=== PATIENT | male | born 1985 | race Caucasian/White ===

== ENCOUNTER 2016-12-08 06:17 | Emergency (ER) | payer OTHER ==
[~2016-12-08] VITALS: Ht 180.3 cm; Wt 92.3 kg
[~2016-12-08 06:17] MED LIST: CYAN100020 PO; METH10CO2 PO; MULTTAB58 PO; OMEG10007 PO
[2016-12-08 06:18] VITALS: TEMP 36.7; Ht 180.3 cm; Wt 92.3 kg
[2016-12-08] MEDS ORDERED: LORAZEPAM 1 MG TAB PO STA (06:48)
--- NOTE | 2016-12-08 06:50 | EMERGENCY ROOM VISIT NOTE ---
History Report prepared by Jaqui: Janusz Sandhu Under the Supervision of: Dr. Edson Srivastava D.O. First contact with patient: 06:39 Chief Complaint: SHORTNESS OF BREATH Stated Complaint: DIZZINESS,NAUSEA,SHORTNESS OF BREATH,SHAKES History of Present Illness The patient is a 31 year old male who presents to the Emergency Room with complaints of persistent dizziness and "shakes" that began at 0530 this morning , one hour prior to arrival. The patient states that he feels like he is having a panic attack, but that this episode is "stronger" than what he usually experiences. He does have a history of anxiety and panic attacks and notes that he has these episodes frequently. He is not on any medications for his anxiety and he does no have a primary care physician. Source of History: patient Onset: 1 hour [employer] Position: other (Global) Quality: other (Anxiety/Panick Attack) Timing: other (Persistent) Review of Systems See HPI for pertinent positives & negatives. A total of 10 systems reviewed and were otherwise negative. Past Medical & Surgical Medical Problems: (1) Anxiety (2) Anxiety (3) Anxiety (4) Anxiety (5) Chest pain (6) Methadone maintenance therapy patient (7) Mood disorder (8) Opioid dependence on agonist therapy (9) Pancreatitis (10) Panic attack (11) Panic attacks (12) Panic attacks (13) Paresthesias (14) Right-sided chest pain (15) Seizure disorder (16) Seizures Surgical Problems: (1) History of tonsillectomy (2) Hx of tonsillectomy Family History Cancer Diabetes mellitus Hypertension Social History Smoking Status: Current Every Day Smoker Alcohol Use: occasionally Drug Use: none Marital Status: in relationship Housing Status: lives with family Occupation Status: employed Current/Historical Medications Scheduled Methadone Hcl (Methadose), 96 MG PO DAILY Allergies Coded Allergies: Cyclobenzaprine (Verified Allergy, Severe, SHORTNESS OF BREATH, 12/08/16) Naproxen (Verified Allergy, Severe, "STARTED TO PEE BLOOD", 12/08/16) Physical Exam Vital Signs Date Time Temp Pulse Resp B/P (MAP) Pulse Ox O2 Delivery O2 Flow Rate FiO2 12/08/16 08:03 98 16 145/97 99 12/08/16 07:05 99 20 150/101 97 12/08/16 06:18 36.7 89 20 158/104 99 Room Air Physical Exam CONSTITUTIONAL/VITAL SIGNS: Reviewed / noted above. GENERAL: Non-toxic in appearance. Slightly anxious appearing. INTEGUMENTARY: Warm, dry, and [place]. HEAD: Normocephalic. EYES: without scleral icterus or trauma. ENT/OROPHARYNX: clear and moist. LYMPHADENOPATHY/NECK: Is supple without lymphadenopathy or meningismus. RESPIRATORY: Lungs clear and equal. CARDIOVASCULAR: Regular rate and rhythm. GI/ABDOMEN: Soft and nontender. No organomegaly or pulsatile mass. No rebound or guarding. Normal bowel sounds. EXTREMITIES: Warm and well perfused. BACK: No CVA tenderness. NEUROLOGICAL: Intact without focal deficits. PSYCHIATRIC: normal affect. MUSCULOSKELETAL: Normally developed with good muscle tone. Medical Decision & Procedures Medications Administered Medications (Trade) Dose Ordered Sig/Mo Route Start Time Stop Time Status Last Admin Dose Admin Lorazepam (Ativan Tab) 1 mg NOW STAT PO 12/08/16 06:48 12/08/16 06:51 DC 12/08/16 06:56 1 MG Diphenhydramine HCl (Benadryl Inj) 50 mg NOW STAT IM 12/08/16 07:31 12/08/16 07:32 DC 12/08/16 07:36 50 MG ED Course 0643: Previous medical records were reviewed. The patient was evaluated in room A3. A complete history and physical examination was performed. 0649: Ordered Ativan 1mg SL 0655: The patient is resting in bed at this time. He is in agreement with the treatment plan and is ready to be discharged home. 0725: Per nursing staff the patient does not feel ready to leave the Department at this time. He notes that he is still experiencing tingling in his arms and dizziness. 0731: Ordered Benadryl 50 mg IM. Medical Decision Differential diagnosis: Etiologies such as mood disorder, anxiety, infection, hypoglycemia, electrolyte abnormalities, cardiac sources, intracerebral event, toxicologic, neurologic, as well as others were entertained. Blood pressure Screening: Patient was found to have high blood pressure on screening and does require follow-up. This is a 31-year-old male who presents to the ED with a chief complaint of shakiness, anxiety and dizziness. The patient states that his symptoms started around 5:30 AM. The patient has a history of anxiety attacks. The patient is chronically on methadone. He denies having a PCP but on a previous note, was noted to have a PCP who is designated in [facility]. He states that he does not know where [facility] is. The patient is noted have previous anxiety and panic attacks since prior to 2014. He states that he feels dizzy, panicky and shaky. His initial blood pressure was 158/104. Repeat blood pressure was slightly better. He was told to follow-up with a PCP for this, to have this rechecked. The patient has an otherwise unremarkable exam. He was treated with Ativan sublingual and Benadryl IM. After a short time, he was feeling better and was discharged. Impression Primary Impression: Panic attacks Scribe Attestation The scribe's documentation has been prepared under my direction and personally reviewed by me in its entirety. I confirm that the note above accurately reflects all work, treatment, procedures, and medical decision making performed by me. Departure Information Dispostion Home / Self-Care Referrals No Doctor, Assigned (PCP) Patient Instructions My [facility], Panic Disorder and Panic Attack Additional Instructions Your blood pressure was a little high today. This should be rechecked by your PCP. This could be related to anxiety. Return to the emergency department for worsening or new symptoms or any concerns. You have been examined and treated today on an emergency basis only. This is not a substitute for, or an effort to provide, complete comprehensive medical care. It is impossible to recognize and treat all injuries or illnesses in a single emergency department visit. It is therefore important that you follow up closely with your doctor. Call as soon as possible for an appointment.
[2016-12-08] MEDS ORDERED: DiphenhydrAMINE HCL 50 MG/ML VIAL IM STA (07:31)
[2016-12-08 08:03] VITALS: BP 145/97; PULSE 98; O2SAT 99
== END 2016-12-08 08:25 | disposition home or self-care (01) ==
LOC: C.EDB 06:18 → C.EDA 08:25
DX: F41.0 Panic disorder [episodic paroxysmal anxiety] (principal); G40.909 Epilepsy, unspecified, not intractable, without status epilepticus; F41.9 Anxiety disorder, unspecified; K86.1 Other chronic pancreatitis; F17.200 Nicotine dependence, unspecified, uncomplicated; Z88.8 Allergy status to other drugs, medicaments and biological substances; Z80.9 Family history of malignant neoplasm, unspecified; Z83.3 Family history of diabetes mellitus; Z82.49 Family history of ischemic heart disease and other diseases of the circulatory system; Z98.890 Other specified postprocedural states

== ENCOUNTER 2017-04-16 07:13 | Emergency (ER) | payer OTHER ==
[~2017-04-16] VITALS: Ht 180.3 cm; Wt 96.2 kg
[~2017-04-16 07:13] MED LIST changes: -CYAN100020 PO; -MULTTAB58 PO; -OMEG10007 PO
[2017-04-16 07:16] VITALS: TEMP 36.9; Ht 180.3 cm; Wt 96.2 kg
[2017-04-16] MEDS ORDERED: ACETAMINOPHEN 500 MG TAB PO STA (07:33)
[2017-04-16] MEDS ORDERED: MULT-506 PO (07:44)
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
[2017-04-16 09:31] VITALS: BP 148/86; PULSE 89; O2SAT 97
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
== END 2017-04-16 09:32 | disposition home or self-care (01) ==
LOC: C.EDB 07:13
DX: S06.0X0A Concussion without loss of consciousness, initial encounter (principal); S00.83XA Contusion of other part of head, initial encounter; R51 Headache; R68.84 Jaw pain; Y04.8XXA Assault by other bodily force, initial encounter; Y92.008 Other place in unspecified non-institutional (private) residence as the place of occurrence of the external cause; M25.78 Osteophyte, vertebrae; J01.00 Acute maxillary sinusitis, unspecified; F41.0 Panic disorder [episodic paroxysmal anxiety]; G40.909 Epilepsy, unspecified, not intractable, without status epilepticus; F41.9 Anxiety disorder, unspecified; F17.200 Nicotine dependence, unspecified, uncomplicated

== ENCOUNTER 2017-11-17 07:34 | Emergency (ER) | payer OTHER ==
[~2017-11-17] VITALS: Ht 180.3 cm; Wt 100.0 kg
[~2017-11-17 07:34] MED LIST changes: +MULT-506 PO
[2017-11-17 07:36] VITALS: TEMP 37.1; Ht 180.3 cm; Wt 100.0 kg
[2017-11-17 07:55] VITALS: O2SAT 97
--- NOTE | 2017-11-17 08:09 | EMERGENCY ROOM VISIT NOTE ---
History First contact with patient: 07:42 Chief Complaint: CARDIAC ASSESSMENT Stated Complaint: PALPITATIONS Nursing Triage Summary: PT HERE VIA ALS FROM HOME WITH CHEST PALPITATIONS. PT STATES HE COUGHED AND HE FELT THAT HIS HEART WAS RACING. PT DENIES ANY CHEST PAINS OR SOB. UPON ARRIVAL PT IS IN SINUS RHYTHM History of Present Illness The patient is a 32 year old male who presents to the Emergency Room via ALS with complaints of one episode lasting approximately 30 minutes of palpitations when he coughed. Patient states he was sitting at home when he began experiencing palpitations and his "heart racing". Patient states there are no associated chest pain, dyspnea, abdominal pain, recent illness, nausea, vomiting , or other concerning symptoms. Patient states he did experience some mild dizziness associated with the episode. He does have a history of similar symptoms in the past which were diagnosed as anxiety. He denies any drug use, and states he is a current smoker. 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 He is feeling better, however, anxious, upon arrival to the ED. He denies any recent travel or history of blood clots. He denies any use of hormone replacement. Review of Systems A complete 10 point review of systems was reviewed with the patient with pertinent positives and negatives as per history of present illness. All else were negative. Past Medical/Surgical History Medical Problems: (1) Anxiety (2) Anxiety (3) Anxiety (4) Anxiety (5) Chest pain (6) Methadone maintenance therapy patient (7) Mood disorder (8) Opioid dependence on agonist therapy (9) Pancreatitis (10) Panic attack (11) Panic attacks (12) Panic attacks (13) Paresthesias (14) Right-sided chest pain (15) Seizure disorder (16) Seizures Surgical Problems: (1) History of tonsillectomy (2) Hx of tonsillectomy Family History Cancer Diabetes mellitus Hypertension Social History Smoking Status: Current Every Day Smoker Smokeless Tobacco Use: No Alcohol Use: occasionally Drug Use: none Marital Status: in relationship Housing Status: lives with family Occupation Status: employed Current/Historical Medications Scheduled Methadone Hcl (Methadose), 96 MG PO DAILY Multivitamin (Multivitamin), 1 TAB PO DAILY Physical Exam Vital Signs Date Time Temp Pulse Resp B/P (MAP) Pulse Ox O2 Delivery O2 Flow Rate FiO2 11/17/17 11:25 94 18 143/87 99 11/17/17 09:30 87 16 164/99 11/17/17 08:30 94 18 129/109 97 Room Air 11/17/17 07:55 97 Room Air 11/17/17 07:48 96 11/17/17 07:36 37.1 100 16 154/101 97 Room Air Physical Exam VITALS: Vitals are noted on the nurse's note and reviewed by myself. Vital signs stable. GENERAL: This is a 31-year-old male, in no acute distress, nondiaphoretic, well- developed well-nourished. SKIN: The skin was without rashes, erythema, edema, or bruising. There is no tenting of the skin. Capillary reflex less than 2 seconds. HEAD: Normocephalic atraumatic. EARS: External auditory canals clear, tympanic membranes pearly comer without erythema or effusion bilaterally. EYES: Pupils equal round and reactive to light and accommodation. Conjunctivae without injection, sclerae without icterus. Extraocular movements intact. NOSE: Patent, turbinates without inflammation or discharge. No sinus tenderness. MOUTH: Mucous membranes moist. Tonsils are not enlarged. Pharynx without erythema or exudate. Uvula midline. Airway patent. Tongue does not deviate. NECK: Supple without nuchal rigidity. No lymphadenopathy. No thyromegaly. Cervical spine is nontender. No JVD. HEART: Regular rate and rhythm without murmurs gallops or rubs. LUNGS: Clear to auscultation bilaterally without wheezes, rales or rhonchi. No dullness to percussion. No retractions or accessory muscle use. ABDOMEN: Positive bowel sounds x 4. Normal tympanic percussion. Soft, nontender, without masses or organomegaly. White sign negative. No guarding or rebound tenderness. MUSCULOSKELETAL: No muscle atrophy, erythema, or edema noted. Full range of motion without joint tenderness in all extremities. No tenderness to palpation. Normal gait. Strength 5/5 throughout. NEURO: Patient was alert and oriented to person place and time. Normal sensation to light and sharp touch. Deep tendon reflexes 2+ throughout. No focal neurological deficits. Medical Decision & Procedures ER Provider Diagnostic Interpretation: CHEST 2 VIEWS ROUTINE HISTORY: 32 years-old Male palpitations acute cardiac palpitations COMPARISON: Chest radiograph 07/29/2015 TECHNIQUE: PA and lateral views of the chest FINDINGS: Cardiomediastinal and hilar silhouettes are within normal limits. Calcified mediastinal lymph nodes are present along with calcified granulomata about the left lung. No pneumothorax, pleural effusion, focal airspace consolidation or overt pulmonary edema. The bones of the chest appear grossly intact. IMPRESSION: 1. No acute process. 2. Prior granulomatous disease. The above report was generated using voice recognition software. It may contain grammatical, syntax or spelling errors. Electronically signed by: Kraig Garces M.D. Laboratory Results 11/17/17 08:10 Red Blood Count 5.24, Mean Corpuscular Volume 85.7, Mean Corpuscular Hemoglobin 29.6, Mean Corpuscular Hemoglobin Concent 34.5, Mean Platelet Volume 10.2, Neutrophils (%) (Auto) 63.0, Lymphocytes (%) (Auto) 24.5, Monocytes (%) (Auto) 9.5, Eosinophils (%) (Auto) 2.5, Basophils (%) (Auto) 0.4, Neutrophils # (Auto) 6.68, Lymphocytes # (Auto) 2.60, Monocytes # (Auto) 1.01, Eosinophils # (Auto) 0.27, Basophils # (Auto) 0.04 11/17/17 08:10 Test 11/17/17 08:10 11/17/17 08:50 White Blood Count 10.61 K/uL (4.8-10.8) Red Blood Count 5.24 M/uL (4.7-6.1) Hemoglobin 15.5 g/dL (14.0-18.0) Hematocrit 44.9 % (42-52) Mean Corpuscular Volume 85.7 fL (80-100) Mean Corpuscular Hemoglobin 29.6 pg (25-34) Mean Corpuscular Hemoglobin Concent 34.5 g/dl (32-36) Platelet Count 296 K/uL (130-400) Mean Platelet Volume 10.2 fL (7.4-10.4) Neutrophils (%) (Auto) 63.0 % Lymphocytes (%) (Auto) 24.5 % Monocytes (%) (Auto) 9.5 % Eosinophils (%) (Auto) 2.5 % Basophils (%) (Auto) 0.4 % Neutrophils # (Auto) 6.68 K/uL (1.4-6.5) Lymphocytes # (Auto) 2.60 K/uL (1.2-3.4) Monocytes # (Auto) 1.01 K/uL (0.11-0.59) Eosinophils # (Auto) 0.27 K/uL (0-0.5) Basophils # (Auto) 0.04 K/uL (0-0.2) RDW Standard Deviation 43.8 fL (36.4-46.3) RDW Coefficient of Variation 14.0 % (11.5-14.5) Immature Granulocyte % (Auto) 0.1 % Immature Granulocyte # (Auto) 0.01 K/uL (0.00-0.02) Erythrocyte Sedimentation Rate 7 mm/hr (0-14) Prothrombin Time 9.8 SECONDS (9.0-12.0) Prothromb Time International Ratio 0.9 (0.9-1.1) Activated Partial Thromboplast Time 25.2 SECONDS (21.0-31.0) Partial Thromboplastin Ratio 1.0 D-Dimer < 190 ug/L FEU (0-500) Anion Gap 7.0 mmol/L (3-11) Est Creatinine Clear Calc Drug Dose 139.3 ml/min Estimated GFR () 128.7 Estimated GFR (Non- 111.0 BUN/Creatinine Ratio 11.0 (10-20) Calcium Level 8.6 mg/dl (8.5-10.1) Magnesium Level 1.8 mg/dl (1.8-2.4) Total Bilirubin 0.3 mg/dl (0.2-1) Aspartate Amino Transf (AST/SGOT) 28 U/L (15-37) Alanine Aminotransferase (ALT/SGPT) 40 U/L (12-78) Alkaline Phosphatase 80 U/L (45-117) Troponin I < 0.015 ng/ml (0-0.045) Total Protein 7.4 gm/dl (6.4-8.2) Albumin 3.8 gm/dl (3.4-5.0) Globulin 3.6 gm/dl (2.5-4.0) Albumin/Globulin Ratio 1.0 (0.9-2) Thyroid Stimulating Hormone (TSH) 1.090 uIu/ml (0.300-4.500) Lyme Disease IgG Antibody NEG (NEG) Lyme Disease IgM Antibody NEG (NEG) Urine Color YELLOW Urine Appearance CLEAR (CLEAR) Urine pH 7.0 (4.5-7.5) Urine Specific [place] 1.008 (1.000-1.030) Urine Protein NEG (NEG) Urine Glucose (UA) NEG (NEG) Urine Ketones NEG (NEG) Urine Occult Blood NEG (NEG) Urine Nitrite NEG (NEG) Urine Bilirubin NEG (NEG) Urine Urobilinogen NEG (NEG) Urine Leukocyte Esterase NEG (NEG) Urine Opiates Screen NEG (NEG) Urine Methadone, Qualitative NEG (NEG) Urine Barbiturates NEG (NEG) Urine Phencyclidine (PCP) Level NEG (NEG) Ur Amphetamine/Methamphetamine NEG (NEG) MDMA (Ecstasy) Screen NEG (NEG) Urine Benzodiazepines Screen NEG (NEG) Urine Cocaine Metabolite NEG (NEG) Urine Marijuana (THC) POS (NEG) Medications Administered Medications (Trade) Dose Ordered Sig/Mo Route Start Time Stop Time Status Last Admin Dose Admin Sodium Chloride 1,000 ml @ 999 mls/hr Q1H1M STAT IV 11/17/17 08:34 11/17/17 09:34 DC 11/17/17 08:49 999 MLS/HR Lorazepam (Ativan Inj) 1 mg NOW STAT IV 11/17/17 08:34 11/17/17 08:37 DC 11/17/17 08:49 1 MG ECG Per My Interpretation Indication: palpitations Rate (beats per minute): 97 Rhythm: normal sinus Findings: no acute ischemic change, no ectopy Comparison ECG Date: 2014 Change: no significant change ED Course The patient was seen and evaluated as above. IV access obtained prehospital. Labs drawn. EKG performed. This was interpreted by myself as above. The patient was given 1 L normal saline solution and 1 mg IV Ativan. His symptoms did improve. Lab results reviewed. I discussed the results with the patient at bedside. Chest x-ray performed and reviewed by myself and radiologist as above. I spoke with case workers regarding establishing the patient with a PCP for follow-up. Discharge instructions reviewed. The patient was discharged home in good condition. Medical Decision This is a 32-year-old male patient presents the emergency department today via ambulance complaining of palpitations. The episode lasted approximately 30 seconds and occurred after coughing. Patient does admit to drinking approximately 6 beers last night and smoking marijuana. He does report a history of similar symptoms in the past, and has been diagnosed with anxiety. He does not currently have a primary care provider, and is not currently being treated for his anxiety. He states he has never experienced palpitations this bad in the past, however states his anxiety has been acting up. While here in the emergency department, workup was overall negative. He did experience some mild, borderline tachycardia, but his EKG showed normal sinus rhythm. There was no abnormal heart rhythm, and the patient did not experience the palpitations while here in the ED. Chest x-ray did not show any acute findings. Labs did not reveal any leukocytosis, anemia, thrombocytopenia. ESR was 7. Coagulation studies were normal. D-dimer was negative at 190. CMP did not reveal any electrolyte abnormalities. The patient's renal and hepatic function were normal. Thyroid testing was normal. The patient's troponin test was negative, magnesium was normal at 1.8. Urinalysis did not reveal any signs of infection. Urine toxicology report was positive for marijuana. I am disease testing was negative. The symptoms did improve with NSS and Ativan. I suspect anxiety is the cause of the patient's symptoms, however did stress the need for outpatient follow-up. I encouraged the patient to get established with a local primary care provider, and recommended a Holter monitor or possibly event recorder to further evaluate his symptoms. I did offer to have the immigration case manager schedule him an appointment, the patient declined. The immigration case manager did speak with the patient regarding local primary care providers. The patient verbalized understanding of treatment plan and assessment. All questions were answered to patient's satisfaction. Etiologies such as ectopy, cardiac dysrhythmia, electrolyte abnormality, thyroid dysfunction, pulmonary embolism, infection, gastrointestinal, as well as others were entertained. The chart was completed utilizing [employer] Speech voice recognition software. Grammatical errors, random word insertions, pronoun errors, and incomplete sentences are an occasional consequence of this system due to software limitations, ambient noise, and hardware issues. Any formal questions or concerns about the content, text, or information contained within the body of this dictation should be directly addressed to the provider for clarification. Medication Reconcilliation Current Medication List: was personally reviewed by me Blood Pressure Screening Patient's blood pressure: Elevated blood pressure Blood pressure disposition: Elevated BP felt to be situational Impression Primary Impression: Palpitations Departure Information Dispostion Home / Self-Care Condition GOOD Referrals No Doctor, Assigned (PCP) Patient Instructions ED Palpitations, My [facility] Additional Instructions You were seen in the emergency department today for palpitations. Labs and imaging did not reveal any obvious acute causes for your symptoms. As discussed, I suspect anxiety is the cause of your symptoms, however I do recommend further outpatient workup including a Holter monitor. This can be set up through your PCPs office. You may also speak with your PCP regarding further treatment/management of your anxiety symptoms. If you continue to experience palpitations, I do recommend follow-up with cardiology. Please schedule an appointment with a PCP in the area. You were given contact information. This follow-up should be within the next 2-3 days. Please return immediately to the emergency department for any worsening chest pain, dyspnea, palpitations, syncope, dizziness, or other concerning symptoms.
[2017-11-17 08:24] LABS: BASO % 0.4 %; BASO ABS # 0.04 K/uL (0-0.2); EOS % 2.5 %; EOS ABS # 0.27 K/uL (0-0.5); HEMATOCRIT 44.9 % (42-52); HEMOGLOBIN 15.5 g/dL (14.0-18.0); IG# 0.01 K/uL (0.00-0.02); LYMPH % 24.5 %; MEAN CELL VOLUME 85.7 fL (80-100); MEAN CORPUSCULAR HEMOGLOBIN 29.6 pg (25-34); MEAN CORPUSCULAR HGB CONC 34.5 g/dl (32-36); MEAN PLATELET VOLUME 10.2 fL (7.4-10.4); MONO % 9.5 %; MONO ABS # 1.01 K/uL (0.11-0.59); NEUT ABS # 6.68 K/uL (1.4-6.5); PLATELET COUNT 296 K/uL (130-400); RED CELL DISTRIBUTION WIDTH SD 43.8 fL (36.4-46.3); WHITE BLOOD COUNT 10.61 K/uL (4.8-10.8)
[2017-11-17] MEDS ORDERED: LORAZEPAM 2 MG/ML 1 ML VIAL IV STA (08:34)
[2017-11-17] MEDS ORDERED: SODIUM CHLORIDE 0.9% 1000ML 1,000 ML IV STA (08:34)
[2017-11-17 08:35] LABS: INR 0.9 (0.9-1.1); PTT PATIENT 25.2 SECONDS (21.0-31.0)
[2017-11-17 08:52] LABS: ALBUMIN 3.8 gm/dl (3.4-5.0); ALKALINE PHOSPHATASE 80 U/L (45-117); ALT/SGPT 40 U/L (12-78); AST/SGOT 28 U/L (15-37); BLOOD UREA NITROGEN 10 mg/dl (7-18); CALCIUM 8.6 mg/dl (8.5-10.1); CARBON DIOXIDE 26 mmol/L (21-32); GLUCOSE 106 mg/dl (70-99); SODIUM 137 mmol/L (136-145); TOTAL PROTEIN 7.4 gm/dl (6.4-8.2)
--- NOTE | 2017-11-17 10:01 | DIAGNOSTIC IMAGING REPORT ---
CHEST 2 VIEWS ROUTINE HISTORY: 32 years-old Male palpitations acute cardiac palpitations COMPARISON: Chest radiograph 07/29/2015 TECHNIQUE: PA and lateral views of the chest FINDINGS: Cardiomediastinal and hilar silhouettes are within normal limits. Calcified mediastinal lymph nodes are present along with calcified granulomata about the left lung. No pneumothorax, pleural effusion, focal airspace consolidation or overt pulmonary edema. The bones of the chest appear grossly intact. IMPRESSION: 1. No acute process. 2. Prior granulomatous disease. The above report was generated using voice recognition software. It may contain grammatical, syntax or spelling errors. Electronically signed by: Kraig Garces M.D. 11/17/2017 10:00 AM Dictated Date/Time: 11/17/2017 9:58 AM
[2017-11-17 11:25] VITALS: BP 143/87; PULSE 94; O2SAT 99
== END 2017-11-17 11:25 | disposition home or self-care (01) ==
LOC: EDBD 07:34 → C.EDB 07:37
DX: R00.2 Palpitations (principal); F17.210 Nicotine dependence, cigarettes, uncomplicated; F41.9 Anxiety disorder, unspecified; G40.909 Epilepsy, unspecified, not intractable, without status epilepticus; F12.90 Cannabis use, unspecified, uncomplicated; Z79.899 Other long term (current) drug therapy; Z80.9 Family history of malignant neoplasm, unspecified; Z83.3 Family history of diabetes mellitus; Z82.49 Family history of ischemic heart disease and other diseases of the circulatory system